=== PATIENT | female | born 1990 | race Hispanic/Latino ===

== ENCOUNTER 2017-10-08 06:06 | Emergency (ER) | payer OTHER ==
[2017-10-08 06:12] VITALS: O2SAT 100
[2017-10-08] MEDS ORDERED: Albuterol 0.083% Inhal Sol (2.5 mg/3 mL) UD INH STA ×2 (06:31→07:47)
[2017-10-08] MEDS ORDERED: Promethazine/Cod 6.25mg-10mg/5ml Syr UD PO STA (06:31)
--- NOTE | 2017-10-08 06:33 | ED PDOC ---
HPI: SOB/CHF/COPD Time Seen by Provider: 10/08/17 06:18 Chief Complaint (Nursing): Shortness Of Breath Chief Complaint (Provider): Fever, Cough, Wheezing, SOB History Per: Patient Onset/Duration Of Symptoms: Days (1 day ago) Current Symptoms Are (Timing): Still Present Additional Complaint(s): 27 y/o female presents to the ED complaining of fever, cough productive of sputum, wheezing, shortness of breath, and sore throat, onset of 1 day. Patient also reports of nasal congestion and rhinorrhea, but denies vomiting, diarrhea, and abdominal pain. Past Medical History Reviewed: Historical Data, Nursing Documentation, Vital Signs Vital Signs: Last Vital Signs Temp 100.5 F H 10/08/17 06:09 Pulse 127 H 10/08/17 06:09 Resp 21 10/08/17 06:20 BP 146/98 H 10/08/17 06:09 Pulse Ox 100 10/08/17 06:40 - Medical History PMH: No Chronic Diseases - Surgical History Surgical History: No Surg Hx - Family History Family History: States: Unknown Family Hx - Social History Current smoker - smoking cessation education provided: No Ex-Smoker (has not smoked in the last 12 months): No Alcohol: None Drugs: Denies - Allergies Allergies/Adverse Reactions: Allergies Allergy/AdvReac Type Severity Reaction Status Date / Time Cephalosporins Allergy URTICARIA Verified 10/08/17 06:13 Penicillins Allergy URTICARIA Verified 10/08/17 06:13 Review of Systems ROS Statement: Except As Marked, All Systems Reviewed And Found Negative Constitutional: Positive for: Fever ENT: Positive for: Nose Discharge, Nose Congestion, Throat Pain Respiratory: Positive for: Cough (productive of sputum), Shortness of Breath, Wheezing Gastrointestinal: Negative for: Vomiting, Abdominal Pain, Diarrhea Physical Exam - Reviewed Nursing Documentation Reviewed: Yes Vital Signs Reviewed: Yes - Physical Exam Appears: Positive for: Non-toxic, No Acute Distress. Negative for: Uncomfortable Head Exam: Positive for: ATRAUMATIC, NORMOCEPHALIC Skin: Positive for: Normal Color, Warm Eye Exam: Positive for: Normal appearance, EOMI, PERRL ENT: Positive for: Normal ENT Inspection, Nasal Congestion Neck: Positive for: Normal, Painless ROM, Supple Cardiovascular/Chest: Positive for: Regular Rate, Rhythm, Tachycardia. Negative for: Murmur Respiratory: Positive for: Normal Breath Sounds. Negative for: Respiratory Distress Gastrointestinal/Abdominal: Positive for: Normal Exam, Soft. Negative for: Tenderness Back: Positive for: Normal Inspection Extremity: Positive for: Normal ROM. Negative for: Pedal Edema, Deformity Neurologic/Psych: Positive for: Alert, Oriented. Negative for: Motor/Sensory Deficits - ECG O2 Sat by Pulse Oximetry: 100 (RA) Pulse Ox Interpretation: Normal Medical Decision Making Medical Decision Making: Time: --06:29 Impression: --Cough, Wheezing, Shortness of Breath, Nasal Congestion Differential: --Acute Bronchitis vs. Pneumonia Plan: --chest x-ray --EKG --Acetaminophen 650mg PO --Albuterol 2.5mg INH --Promethazine/Codeine 5ml PO --Peak Flow Pre/Post Tx --Influenza A B Reassess --07:00 Patient to be signed out to Dr. Lozano pending flu test results and reassessment of the patient. Scribe Attestation: Documented by Curry Diggs acting as a scribe for Surya Moore MD Disposition - Clinical Impression Clinical Impression: Dyspnea, Coughing, Wheezing, Nasal congestion - Patient ED Disposition Is Patient to be Admitted: Transfer of Care Discussed With : Luis Lozano Doctor Will See Patient In The: ED - Disposition Disposition: Transfer of Care Disposition Time: 07:00 Condition: FAIR Forms: [facility] (French) Patient Signed Over To: Luis Lozano
[2017-10-08] MEDS ORDERED: Albuterol-Ipratrop 3 mg / 0.5 (3 ml) UD ONE (06:41)
[2017-10-08] MEDS ORDERED: Promethazine/Cod 6.25mg-10mg/5ml Syr UD ONE (06:42)
--- NOTE | 2017-10-08 07:21 | ED PDOC ---
- ECG O2 Sat by Pulse Oximetry: 100 (RA) Pulse Ox Interpretation: Normal - Progress ED Course And Treament: sx markedly improved wheezing resolved advise albuterol and prednisone. pt agree 's with plan. Re-evaluation Time: 08:34 Condition: Improved Disposition Counseled Patient/Family Regarding: Studies Performed, Diagnosis, Need For Followup - Clinical Impression Clinical Impression: Dyspnea, Coughing, Wheezing, Nasal congestion - POA Present On Arrival: None - Disposition Referrals: [facility] [Outside] (2 to 3 days) Disposition: Routine/Home Disposition Time: 08:35 Condition: GOOD Prescriptions: Albuterol HFA [Ventolin HFA 90 mcg/actuation (8 g)] 2 puff IH [id number] PRN #60 puff PRN Reason: Cough Albuterol 0.083% [Albuterol Sulfate 3 Ml] 3 ml IH TID PRN #60 neb PRN Reason: Cough Mask, Face [Nebulizer Aerosol Mask Adult] 1 dev XX DAILY #1 dev Nebulizer and Compressor [Hundred Choice Nebulizer] 1 each MC ONCE #1 each Prednisone [Deltasone] 40 mg PO DAILY 3 Days tablet Instructions: Bronchospasm (ED) Forms: [employer] [facility] (Mongolian)
[2017-10-08 07:29] VITALS: BP 127/76; PULSE 103; RESP 20; TEMP 99.1
[2017-10-08] MEDS ORDERED: Albuterol 0.083% Inhal Sol (2.5 mg/3 mL) UD ONE (08:23)
--- NOTE | 2017-10-08 13:45 | RAD ---
HISTORY: dyspnea COMPARISON: None available. TECHNIQUE: Chest PA and lateral FINDINGS: LUNGS: No focal consolidation. Please note that chest x-ray has limited sensitivity for the detection of pulmonary masses. PLEURA: No significant pleural effusion identified. No definite pneumothorax . CARDIOVASCULAR: The cardiomediastinal silhouette appears within normal limits of size. OSSEOUS STRUCTURES: No acute osseous abnormality identified. VISUALIZED UPPER ABDOMEN: Unremarkable. OTHER FINDINGS: None. IMPRESSION: No focal consolidation, significant pleural effusion, or definite pneumothorax identified.
--- NOTE | 2017-10-08 14:17 | CARD ---
APPROVED REPORT EKG Measurement Heart [id number] <Conclusion> Sinus tachycardia Nonspecific ST abnormality Abnormal ECG
== END 2017-10-08 09:40 | disposition home or self-care (01) ==
LOC: H.ER 06:06
DX: J98.01 Acute bronchospasm (principal); Z88.0 Allergy status to penicillin